=== PATIENT | female | born 1990 | race African-American/Black ===

== ENCOUNTER 2021-10-13 23:56 | Emergency (ER) | payer SELFPAY ==
[2021-10-14] MEDS ORDERED: Ondansetron ODT 8 MG TAB ONE (00:46)
== END 2021-10-14 00:50 | disposition home or self-care (01) ==
LOC: ERS 23:56
DX: R11.2 Nausea with vomiting, unspecified (principal); R19.7 Diarrhea, unspecified; F17.210 Nicotine dependence, cigarettes, uncomplicated
CPT/HCPCS: 99283; Q0162

== ENCOUNTER 2022-01-06 23:51 | Emergency (ER) | payer OTHER, SELFPAY ==
[2022-01-07] MEDS ORDERED: Morphine 4 MG/ML VIAL ONE (02:51)
[2022-01-07] MEDS ORDERED: Ketorolac Tromethamine 30 MG/ML VIAL ONE (03:08)
== END 2022-01-07 03:37 | disposition home or self-care (01) ==
LOC: ERS 23:51
DX: G50.0 Trigeminal neuralgia (principal); F17.210 Nicotine dependence, cigarettes, uncomplicated
CPT/HCPCS: 96372; 99282; J1885; J2270